=== PATIENT | male | born 1990 | race Caucasian/White ===

== ENCOUNTER 2017-06-16 00:49 | Day surgery (SDC) | payer OTHER ==
[~2017-06-16] VITALS: Ht 162.6 cm; Wt 83.5 kg
[2017-06-16] MEDS ORDERED: LIDOCAINE MPF 1% 5 ML VIAL ONE (08:47)
[2017-06-16] MEDS ORDERED: METOCLOPRAMIDE 10 MG/2 ML SDV ONE (08:47)
[2017-06-16] MEDS ORDERED: PROPOFOL EMUL(*) 10MG/ML 20 ML 20 ML ONE (08:47)
[2017-06-16] MEDS ORDERED: ONDANSETRON 4 MG/2 ML VIAL ONE (08:47)
[2017-06-16] MEDS ORDERED: DEXAMETHASONE SOD 4 MG/ML VIAL ONE (08:47)
[2017-06-16 09:36] VITALS: BP 135/89
[2017-06-16 09:50] LABS: PLATELET COUNT, AUTOMATED 320 K/uL (150-450)
[2017-06-16] MEDS ORDERED: FAMOTIDINE 20 MG TAB PO ONE (09:50)
[2017-06-16] MEDS ORDERED: LIDOCAINE/SOD BICARB 8.4% SYR ID ONE (09:50)
[2017-06-16] MEDS ORDERED: MIDAZOLAM 2 MG/2 ML VIAL IVP PRN (09:50)
[2017-06-16] MEDS ORDERED: NORMOSOL R SOLN(*) 1000 ML BAG 1,000 ML IV PRN (09:50)
[2017-06-16] MEDS ORDERED: ceFAZolin(*) 2GM/D5W 50ML 50 ML IVPB ONE (10:05)
[2017-06-16] MEDS ORDERED: fentaNYL CITR 100 MCG/2 ML AMP ONE ×3 (10:06→12:44)
[2017-06-16] MEDS ORDERED: BACITRACIN OINT 15 GM TUBE TP ONE (10:35)
[2017-06-16] MEDS ORDERED: LIDO/EPI 1% MDV 1:100,000 20ML INFIL ONE (10:36)
[2017-06-16] MEDS ORDERED: CEFU500T10 PO (12:57)
[2017-06-16] MEDS ORDERED: HYDR-4309 PO (12:58)
[2017-06-16] MEDS ORDERED: APAP/HYDROCODONE 325/5 TAB ONE ×2 (13:13→13:55)
[2017-06-16 13:30] VITALS: BP 145/99
[2017-06-16 13:58] VITALS: BP 144/91
[2017-06-16 14:30] VITALS: BP 141/94
[2017-06-16 14:34] VITALS: BP 156/88
[2017-06-16 14:37] VITALS: BP 145/109
--- NOTE | 2017-06-17 06:35 | OPERATIVE REPORT 1 ---
EVENT DATE: June 16, 2017 SURGEON: Eliezer Talamantes MD ANESTHESIOLOGIST: Simon Saavedra MD ANESTHESIA: LMA PROCEDURE Left submandibular gland excision. PREOPERATIVE DIAGNOSIS Chronic left submandibular sialadenitis. POSTOPERATIVE DIAGNOSIS Chronic left submandibular sialadenitis. INDICATIONS Please refer to the preoperative note. DESCRIPTION OF PROCEDURE The patient was positively identified in the preoperative area. He was accompanied there by his girlfriend. Risks were again explained, including but not limited to bleeding, infection, injury to nerves and/or vessels, including but not limited to the marginal mandibular nerve and the lingual nerve, and those associated with anesthesia. The patient acknowledged understanding of those risks. He was then brought back to the operative suite, placed supine on the operative table, and anesthesia was administered. Once asleep, the patient was positioned, then prepped and draped in usual sterile fashion. Of note, the facial nerve monitor was applied to the patient and utilized throughout the case. Favorable neck crease was found in proximity to the submandibular gland greater than 2 fingerbreadths below the angle of mandible to decrease the risk to the marginal mandibular nerve. An approximately 5 cm incision was planned and marked, and 2 cc of 1% lidocaine with epinephrine was infiltrated. The aforementioned incision was then made with a 15 blade. The underlying subcutaneous tissue was then dissected with Bovie electrocautery. The platysma muscle was identified and divided with Bovie electrocautery. I then bluntly dissected deeply onto the space of the submandibular gland parenchyma. I then carefully dissected the gland from the surrounding connective tissue. The facial artery and vein were encountered and ligated. I then continued my dissection superiorly. The submandibular plexus was identified and preserved. At the superior turbinates of the gland, the duct was suture ligated with a 3-0 silk. The wound was then copiously irrigated with normal saline solution. A Valsalva maneuver was performed. Hemostasis was assumed. A small piece of Fibrillar Surgicel was placed in the wound bed. The platysma was then reapproximated with interrupted chromic stitch. The skin was then closed in a multilayer fashion. The patient was then turned to anesthesia for emergence. ESTIMATED BLOOD LOSS 25 mL. COMPLICATIONS No complications MTDD
== END 2017-06-16 13:30 | disposition home or self-care (01) ==
LOC: OR 00:49
PROVIDERS: ATTEND Otolaryngology
DX: K11.23 Chronic sialoadenitis (principal)
CPT/HCPCS: 36415; 42440; 85025; 88305; J1100; J2001; J2405; J2704; J2765; J3010; J0690

== ENCOUNTER → 2017-06-23 | Outpatient (CLI) | payer OTHER ==
[~2017-06-23] MED LIST: CEFU500T10 PO; HYDR-4309 PO; SULF-198 PO
== END ==
LOC: LAB 15:09
PROVIDERS: ATTEND Otolaryngology
DX: T81.4XXA Infection following a procedure, initial encounter (principal)
CPT/HCPCS: 87070